=== PATIENT | female | born 1975 | race Caucasian/White ===

== ENCOUNTER 2017-08-30 19:18 | Emergency (ER) | payer OTHER ==
[~2017-08-30] VITALS: Ht 172.7 cm; Wt 72.6 kg
--- NOTE | 2017-08-30 19:33 | ED.ADGEN ---
Adult General Chief Complaint Chief Complaint " .. I was goofing off spraying my new with water.. and tripped over the straw bail.. I had just got ... and my Rayban sunglasses broke and cut into my eye brow..." HPI HPI Patient is a 42 year old female who presents with above hx and complaints of 8 cm star shaped laceration to Lt side of forehead just above eye brown. Pt. sates she fell on her sun glasses.. and the cut into her forehead. Pt. just completed wedding , just before injury. Pt. lives in [facility] and had travel here for a [place] on her [place]. Pt. laceration is to the level of the skull. Pt. also has small abrasion to upper Lt eye lid. Pt denies any other injury. Pt. states sun glasses broke and does not know if glass remained in the wound. Pt. normally healthy. No hx of immunosuppression. Pt. denies any vision change. Review of Systems Review of Systems Constitutional: Denies fever or chills [] Eyes: Denies change in visual acuity, redness, or eye pain [] HENT: Denies nasal congestion or sore throat [] Complaints of Lt forehead laceration Respiratory: Denies cough or shortness of breath [] Cardiovascular: No additional information not addressed in HPI [] GI: Denies abdominal pain, nausea, vomiting, bloody stools or diarrhea [] : Denies dysuria or hematuria [] Musculoskeletal: Denies back pain or joint pain [] Integument: Denies rash or skin lesions [] Neurologic: Denies headache, focal weakness or sensory changes [] Endocrine: Denies polyuria or polydipsia [] All other systems were reviewed and found to be within normal limits, except as documented in this note. Family History Family History Non-contributory Current Medications Current Medications Current Medications Medications (Trade) Dose Ordered Sig/Hernan Start Time Stop Time Status Last Admin Dose Admin Bupivacaine HCl (Sensorcaine Mpf 0.5%) 30 ml 1X ONCE 08/30/17 19:45 08/30/17 19:58 DC Lidocaine HCl 20 ml 1X ONCE 08/30/17 19:45 08/30/17 19:58 DC 08/30/17 21:04 20 ML Lidocaine/ Epinephrine (Xylocaine 2%-Epi 1:100,000) 20 ml 1X ONCE 08/30/17 21:00 08/30/17 21:01 DC 08/30/17 21:04 20 ML Allergies Allergies Allergies Coded Allergies Type Severity Reaction Last Updated Verified No Known Drug Allergies 08/30/17 No Physical Exam Physical Exam Constitutional: Moderate acute distress, non-toxic appearance. [] HENT: Normocephalic, laceration as per HPI, bilateral external ears normal, oropharynx moist, no oral exudates, nose normal. [] Eyes: PERRLA, EOMI, conjunctiva normal, no discharge. [] Neck: Normal range of motion, no tenderness, supple, no stridor. [] Cardiovascular:Heart rate regular rhythm, no murmur [] Lungs & Thorax: Bilateral breath sounds clear to auscultation [] Abdomen: Bowel sounds normal, soft, no tenderness, no masses, no pulsatile masses. [] Skin: Warm, dry, no erythema, no rash. [] Back: No tenderness, no CVA tenderness. [] Extremities: No tenderness, no cyanosis, no clubbing, ROM intact, no edema. [] Neurologic: Alert and oriented X 3, normal motor function, normal sensory function, no focal deficits noted. [] Psychologic: Affect anxious, judgement normal, mood normal. [] Current Patient Data Vital Signs Vital Signs Date Time Temp Pulse Resp B/P (MAP) Pulse Ox O2 Delivery O2 Flow Rate FiO2 08/30/17 21:00 75 16 116/70 (85) 100 Room Air EKG EKG [] Radiology/Procedures Radiology/Procedures My dictation of skull film shows no obvious fracture or dislocation. There does not appear to be any foreign body-glass in the area of wound.[] Course & Med Decision Making Course & Med Decision Making Pertinent Labs and Imaging studies reviewed. (See chart for details) Procedure Note- Laceration repair- Edge of wound cleaned with betadine. Injected edge of wound with Lidocaine and Sensorcaine. Re- irrigated and washed wound. Re- irrigated with normal saline. 4x Vicryl 4-0 suture placed to approximate edge of wound.. Then 12x 6-0 prolene sutures placed. Dressing applied with Bactracin. Pt. to keep wound clean and dry. Sutures out in 5 days. Apply Polysporin 4 times a day. May take Tylenol and ibuprofen for pain. Follow-up any concerns. Patient instructed that she would have a significant scar and after scar contraction may want to consider plastic revision. [] Final Impression Final Impression 1. Laceration[]-8 cm Lt. eye brow and forehead. Dragon Disclaimer Dragon Disclaimer This electronic medical record was generated, in whole or in part, using a voice recognition dictation system. SUDHA CANCINO MD Aug 30, 2017 19:33
[2017-08-30] MEDS ORDERED: LIDOCAINE 2%/EPI 1:100,000 20 ML VIAL. ONE (19:35)
[2017-08-30] MEDS ORDERED: LIDOCAINE 2% 20 ML VIAL. IJ ONE (19:45)
[2017-08-30] MEDS ORDERED: BUPIVACAINE MPF 0.5% 30 ML VIAL. SQ ONE (19:45)
[2017-08-30 21:00] VITALS: BP 116/70
[2017-08-30] MEDS ORDERED: LIDOCAINE 2%/EPI 1:100,000 20 ML VIAL. IJ ONE (21:00)
--- NOTE | 2017-08-31 06:10 | RAD ---
EXAM: SKULL COMPLETE 4+V. HISTORY: Laceration over left eye. Assess for foreign body. COMPARISON: None. FINDINGS: There is no radiopaque foreign body. No fractures are identified. There are no air-fluid levels in the sinuses. The mastoid air cells are normally aerated. IMPRESSION: 1. No displaced fracture or radiopaque foreign body. Electronically signed by: Diogenes Jensen MD (08/31/2017 6:06 AM) [id number]
== END 2017-08-30 21:03 | disposition home or self-care (01) ==
LOC: ER 19:18
DX: S01.81XA Laceration without foreign body of other part of head, initial encounter (principal); S01.112A Laceration without foreign body of left eyelid and periocular area, initial encounter; W01.110A Fall on same level from slipping, tripping and stumbling with subsequent striking against sharp glass, initial encounter; Y93.89 Activity, other specified; Y99.8 Other external cause status; Y92.89 Other specified places as the place of occurrence of the external cause
CPT/HCPCS: 12015; 70260; 99284; J2001